=== PATIENT | female | born 1945 | race Caucasian/White ===

== ENCOUNTER → 2018-07-14 | Outpatient (CLI) | payer MEDICARE ==
--- NOTE | 2018-07-14 11:55 | PCVCIMAG ---
EXAM: BILATERAL LOWER EXTREMITY ARTERIAL DUPLEX INDICATION: Peripheral Arterial Disease. Leg pain. Bilateral lower leg ulcers. FINDINGS: Right Leg: Common femoral and profunda femoral arteries are patent. Superficial femoral artery is patent. 40-50% stenosis mid popliteal artery. Posterior tibial artery is occluded as is the peroneal artery. Anterior tibial artery is patent. Left Leg: Common femoral and profunda femoral arteries are patent. 50-60% stenosis mid [place] superficial femoral artery and distal [place] popliteal artery. Occlusion of the peroneal and posterior tibial arteries. High-grade stenosis or occlusion of the proximal anterior tibial artery. IMPRESSION: 40-50% stenosis mid [place] right popliteal artery. 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 50-60% stenosis mid [place] left superficial femoral artery. 50-60% stenosis distal [place] left popliteal artery. Occlusion of the left peroneal and posterior tibial arteries. High-grade stenosis or occlusion of the proximal left anterior tibial artery. Incidental note is made of a 2.4 x 4.2 x 5.4 cm complex left popliteal cyst. LOC:[id number]
== END | disposition home or self-care (01) ==
LOC: PCVCIMAG 10:04
PROVIDERS: ATTEND Emergency Medicine
DX: I73.9 Peripheral vascular disease, unspecified (principal); L97.929 Non-pressure chronic ulcer of unspecified part of left lower leg with unspecified severity; L97.919 Non-pressure chronic ulcer of unspecified part of right lower leg with unspecified severity; L98.499 Non-pressure chronic ulcer of skin of other sites with unspecified severity; M79.89 Other specified soft tissue disorders
CPT/HCPCS: 93925